=== PATIENT | female | born 1940 | race Caucasian/White ===

== ENCOUNTER 2021-04-05 16:08 | Emergency (ER) | payer MEDICARE ==
[~2021-04-05] VITALS: Ht 167.6 cm; Wt 60.3 kg
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
--- NOTE | 2021-04-05 16:28 | NUR ---
AT BEDSIDE FOR EVAL.
[2021-04-05] MEDS ORDERED: LIDOCAINE 1% INJ 50 ML MDV IJ ONE (16:30)
[2021-04-05] MEDS ORDERED: TDAP [DIPH/PERTUSSIS/TET] 0.5 ML VIAL IM ONE ×2 (16:30→16:35)
[2021-04-05] MEDS ORDERED: LIDOCAINE /MPF 1% VIAL 5 ML VIAL ONE (16:34)
[2021-04-05] MEDS ORDERED: LOSARTAN POTASSIUM 25 MG TABLET PO ONE (18:00)
[2021-04-05] MEDS ORDERED: LOSARTAN POTASSIUM 25 MG TABLET ONE (18:07)
--- NOTE | 2021-04-05 19:10 | NUR ---
AT BEDSIDE FOR SUTURING.
[2021-04-05] MEDS ORDERED: IBUP-1953 PO (19:45)
--- NOTE | 2021-04-05 20:21 | NUR ---
Patient discharged to home in stable condition. Written and verbal after care instructions given. Patient verbalizes understanding of instruction.
[2021-04-05 20:22] VITALS: BP 175/99
== END 2021-04-05 20:23 | disposition home or self-care (01) ==
LOC: ER 16:11
DX: S01.81XA Laceration without foreign body of other part of head, initial encounter (principal); I10 Essential (primary) hypertension; V49.59XA Passenger injured in collision with other motor vehicles in traffic accident, initial encounter; Y93.89 Activity, other specified; Y92.89 Other specified places as the place of occurrence of the external cause; Y99.8 Other external cause status
CPT/HCPCS: 12013; 70450; 71045; 72125; 90471; 90715; 99284; A6403; J3490